=== PATIENT | male | born 2005 | race African-American/Black ===

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

== ENCOUNTER 2024-03-12 12:01 | Emergency (ER) | payer OTHER | END 2024-03-12 12:53 | disposition home or self-care (01) | LOC: NAV ERS 12:01 | DX: R05.9 Cough, unspecified (principal); J45.909 Unspecified asthma, uncomplicated; Z79.51 Long term (current) use of inhaled steroids | CPT/HCPCS: 99283 ==

== ENCOUNTER 2024-04-29 22:23 | Emergency (ER) | payer OTHER | END 2024-04-29 23:22 | disposition home or self-care (01) | LOC: NAV ERS 22:23 | DX: J00 Acute nasopharyngitis [common cold] (principal) | CPT/HCPCS: 87428; 99283 ==